=== PATIENT | female | born 1965 | race Caucasian/White ===

== ENCOUNTER 2017-06-04 17:36 | Emergency (ER) | payer MEDICAID ==
[~2017-06-04] VITALS: Ht 152.4 cm; Wt 68.0 kg
[2017-06-04 17:36] VITALS: BP_SYST 114
[~2017-06-04 17:36] MED LIST: ALBU17AE26; CYCL-10; HYDR1TAB10; LIDP; SUMA100T; TOP25; TRAM100T11; TRAM50TA2 PO; ZIPR80CA26
== END 2017-06-04 19:42 | disposition left against medical advice (07) ==
LOC: SED 17:36
DX: M25.512 Pain in left shoulder (principal); J45.909 Unspecified asthma, uncomplicated
CPT/HCPCS: 99281

== ENCOUNTER 2017-06-15 18:10 | Emergency (ER) | payer MEDICAID ==
[~2017-06-15] VITALS: Ht 152.4 cm; Wt 72.6 kg
[2017-06-15 18:19] VITALS: BP_SYST 117
--- NOTE | 2017-06-15 20:00 | NUR ---
Patient left without being seen. No further treatment done. ER MD aware
== END 2017-06-15 20:00 | disposition left against medical advice (07) ==
LOC: SED 18:10
DX: M25.512 Pain in left shoulder (principal); Z53.21 Procedure and treatment not carried out due to patient leaving prior to being seen by health care provider; Z88.8 Allergy status to other drugs, medicaments and biological substances; Z79.899 Other long term (current) drug therapy
CPT/HCPCS: 73030; 99281

== ENCOUNTER 2017-06-22 15:17 | Emergency (ER) | payer MEDICAID ==
[~2017-06-22] VITALS: Ht 152.4 cm; Wt 72.6 kg
[2017-06-22 15:20] VITALS: BP_SYST 123
--- NOTE | 2017-06-22 15:23 | NUR ---
Pt placed to ER bed 03. Report given to JUDD Leonard.
--- NOTE | 2017-06-22 15:32 | NUR ---
PATIENT TO ER BED 3.PER PATIENT SHE HAS BEEN FEELING PAIN TO LEFT SHOULDER BUT IT GOT WORSE FOR THE LAST 3 DAYS.COMPLAINING OF LEFT SHOULDER PAIN 10/10 RADIATING TO LEFT ARM.WITH LIMITED LEFT ARM MOVEMENT.NONPITTING EDEMA TO LEFT WRIST;NO REDNESS;PAIN TO PALPATION.NO OTHER COMPLAIN/INJURY NOTED PER PATIENT OR NOTED
--- NOTE | 2017-06-22 15:33 | NUR ---
ER at bedside examining patient.
[2017-06-22] MEDS ORDERED: MORPHINE SULFATE 10 MG/ML VIAL IM ONE (15:45)
[2017-06-22] MEDS ORDERED: DIPHENHYDRAMINE INJ 50 MG/ML VIAL IM ONE (15:45)
--- NOTE | 2017-06-22 16:16 | NUR ---
Patient given written and verbal discharge instructions and verbalizes understanding. ER MD discussed with patient the results and treatment provided. Patient in stable condition. ID arm band removed. Rx of Flexeril,Mobic and Ultram given. Patient educated on pain management and to follow up with PMD. Pain Scale 0/10 . Opportunity for questions provided and answered.
[2017-06-22 16:20] VITALS: BP_SYST 122
== END 2017-06-22 16:20 | disposition home or self-care (01) ==
LOC: SED 15:17
DX: M25.512 Pain in left shoulder (principal); J45.909 Unspecified asthma, uncomplicated; G40.909 Epilepsy, unspecified, not intractable, without status epilepticus; F31.9 Bipolar disorder, unspecified; Z88.2 Allergy status to sulfonamides; Z88.1 Allergy status to other antibiotic agents; Z79.899 Other long term (current) drug therapy
CPT/HCPCS: 73030; 96372; 99284; J1200; J2270

== ENCOUNTER 2019-01-08 12:11 | Emergency (ER) | payer MEDICAID ==
[~2019-01-08] VITALS: Ht 152.4 cm; Wt 61.2 kg
[~2019-01-08 12:11] MED LIST changes: +ZIPR80CA23; -ZIPR80CA26
[2019-01-08 12:18] VITALS: BP_SYST 111
[2019-01-08] MEDS ORDERED: KETOROLAC TROMETHAMINE 60 MG/2 ML VIAL IM ONE (13:00)
[2019-01-08] MEDS ORDERED: CEPHALEXIN 500 MG CAPSULE PO ONE (14:15)
[2019-01-08 15:04] LABS: BILIRUBIN,URINE NEGATIVE (NEGATIVE); BLOOD, URINE 1+ (NEGATIVE); COLOR,URINE YELLOW (YELLOW); GLUCOSE,URINE NEGATIVE (NEGATIVE); KETONES,URINE NEGATIVE (NEGATIVE); NITRITE, URINE POSITIVE (NEGATIVE); PH,URINE 5.5 (5.0-8.0); PROTEIN URINE TRACE (NEGATIVE); UROBILINOGEN,URINE 0.2 (0.2-1.0)
[2019-01-08 15:17] VITALS: BP_SYST 129
[2019-01-08 15:20] LABS: CLARITY/URINE SLIGHTLY CLOUDY (CLEAR); LEUKOCYTE ESTERASE ,URINE TRACE (NEGATIVE)
[2019-01-08 15:21] LABS: BACTERIA,URINE MODERATE /HPF (None Seen); RBC,URINE NONE SEEN /HPF (0-3)
[2019-01-08 15:22] LABS: CALCIUM OXALATE CRYSTALS,UR 0-10 /HPF (None Seen); MUCUS,URINE None Seen /LPF (None Seen); URINE AMORPHOUS URATE 3+ /HPF (None Seen)
== END 2019-01-08 15:17 | disposition home or self-care (01) ==
LOC: SED 12:11
DX: G44.209 Tension-type headache, unspecified, not intractable (principal); N39.0 Urinary tract infection, site not specified; M79.7 Fibromyalgia; J45.909 Unspecified asthma, uncomplicated; F32.9 Major depressive disorder, single episode, unspecified; Z90.49 Acquired absence of other specified parts of digestive tract; Z90.710 Acquired absence of both cervix and uterus; Z88.2 Allergy status to sulfonamides; Z88.8 Allergy status to other drugs, medicaments and biological substances; Z79.899 Other long term (current) drug therapy
CPT/HCPCS: 81000; 87086; 96372; 99283; J1885

== ENCOUNTER 2019-05-09 19:16 | Emergency (ER) | payer MEDICAID ==
[~2019-05-09] VITALS: Ht 152.4 cm; Wt 63.5 kg
[2019-05-09 19:20] VITALS: BP_SYST 151
[2019-05-09] MEDS ORDERED: KETOROLAC TROMETHAMINE 60 MG/2 ML VIAL IM ONE (22:00)
[2019-05-09] MEDS ORDERED: ceFAZolin SODIUM 1 GM VIAL IM ONE (22:00)
[2019-05-09 22:40] VITALS: BP_SYST 134
== END 2019-05-09 22:40 | disposition home or self-care (01) ==
LOC: SED 19:16
DX: L03.116 Cellulitis of left lower limb (principal); M79.7 Fibromyalgia; F31.9 Bipolar disorder, unspecified; Z90.49 Acquired absence of other specified parts of digestive tract; Z88.2 Allergy status to sulfonamides; Z88.8 Allergy status to other drugs, medicaments and biological substances; Z79.899 Other long term (current) drug therapy
CPT/HCPCS: 96372; 99283; J0690; J1885

== ENCOUNTER 2019-10-03 14:27 | Emergency (ER) | payer MEDICAID ==
[~2019-10-03] VITALS: Ht 152.4 cm; Wt 65.8 kg
[2019-10-03 14:58] VITALS: BP_SYST 152
--- NOTE | 2019-10-03 15:05 | NUR ---
Placed in room . Placed on substitute nurse, blood pressure machine and pulse oximeter. Side rails up.seizure precautions.
[2019-10-03] MEDS ORDERED: NACL 0.9% 1,000 ML IV ONE (15:10)
--- NOTE | 2019-10-03 15:10 | NUR ---
Patient presented to ER C/O seizure today. Patient A&Ox4, afebrile, ambulatory to ER, BIB , skin pink and warm, pain 7/10, nausea, vomiting x1, denies diarrhea. Patient states she had seizure today, ran out of RX 2weeks ago, has head ache pain & weakness.
--- NOTE | 2019-10-03 15:11 | NUR ---
ER at bedside examining patient.
[2019-10-03 15:30] LABS: BASOPHILS # (AUTO) 0.1 K/uL (0.0-0.2); BASOPHILS % (AUTO) 0.6 % (0.0-2.0); EOSINOPHILS # (AUTO) 0.1 K/uL (0.0-0.4); EOSINOPHILS % (AUTO) 0.8 % (0.0-4.0); HEMATOCRIT 41.3 % (36-48); HEMOGLOBIN 13.9 g/dL (12.0-16.0); LYMPHOCYTES # (AUTO) 1.6 K/uL (1.0-5.5); LYMPHOCYTES % (AUTO) 16.6 % (20.5-51.5); MEAN CORPUSCULAR HEMOGLOBIN 31 pg (27-31); MEAN CORPUSCULAR HGB CONC 34 % (32-36); MEAN CORPUSCULAR VOLUME 91 fL (79.0-98.0); MONOCYTES # (AUTO) 0.7 K/uL (0.0-1.0); MONOCYTES % (AUTO) 6.9 % (1.7-9.3); NEUTROPHILS # (AUTO) 7.4 K/uL (1.8-7.7); NEUTROPHILS % (AUTO) 75.1 % (40.0-70.0); PLATELET COUNT (AUTO) 403 K/uL (130-430); RED BLOOD CELL COUNT(AUTO) 4.55 MIL/uL (4.2-6.2); RED CELL DISTRIBUTION WIDTH 14.2 % (9.0-15.0); WHITE BLOOD COUNT (AUTO) 9.8 K/uL (4.8-10.8)
[2019-10-03] MEDS ORDERED: DIPHENHYDRAMINE INJ 50 MG/ML VIAL IVP ONE (15:30)
[2019-10-03] MEDS ORDERED: ONDANSETRON HCL 4 MG/2 ML VIAL IVP ONE (15:30)
[2019-10-03 15:41] LABS: BILIRUBIN,URINE NEGATIVE (NEGATIVE); BLOOD, URINE 1+ (NEGATIVE); CLARITY/URINE CLOUDY (CLEAR); COLOR,URINE YELLOW (YELLOW); GLUCOSE,URINE NEGATIVE (NEGATIVE); KETONES,URINE NEGATIVE (NEGATIVE); LEUKOCYTE ESTERASE ,URINE TRACE (NEGATIVE); NITRITE, URINE POSITIVE (NEGATIVE); PH,URINE 6.5 (5.0-8.0); PROTEIN URINE NEGATIVE (NEGATIVE); UROBILINOGEN,URINE 0.2 (0.2-1.0)
[2019-10-03 15:42] LABS: CALCIUM 8.9 mg/dL (8.4-11.0); CREATININE 0.75 mg/dL (0.55-1.30); POTASSIUM 3.8 mmol/L (3.5-5.1)
[2019-10-03 15:48] LABS: ALBUMIN 3.9 g/dL (3.4-4.8); TOTAL BILIRUBIN 0.3 mg/dL (0.0-1.0)
[2019-10-03 15:51] LABS: ACETAMINOPHEN < 1 ug/mL (1-30); ALCOHOL, BLOOD < 3 mg/dL (<10)
[2019-10-03 15:55] LABS: INR 0.9 (0.8-1.2); PROTHROMBIN TIME 9.3 SECS (9.5-12.5)
--- NOTE | 2019-10-03 15:55 | NUR ---
Patient in in Radiology for CT.
[2019-10-03 16:02] LABS: BARBITURATE, URINE NEGATIVE (NEG <=200); BENZODIAZEPINE, URINE NEGATIVE (NEG <=150); CANNABINOID, URINE POSITIVE (NEG <=50); COCAINE, URINE NEGATIVE (NEG <=150); METHAMPHETAMINES SCREEN,URINE NEGATIVE (NEG <=500); OPIATE, URINE NEGATIVE (NEG <=100); PHENCYCLIDINE SCREEN,URINE NEGATIVE (NEG <=25); UR TRICYCLIC ANTIDEPRESSANTS NEGATIVE (NEG <=300); URINE AMPHETAMINE POSITIVE (NEG <=500); URINE METHADONE NEGATIVE (NEG <=200); URINE OXYCODONE SCREEN NEGATIVE (NEG <=100); URINE PROPOXYPHENE SCREEN NEGATIVE (NEG <=300)
[2019-10-03 16:58] LABS: BACTERIA,URINE MANY /HPF (None Seen); MUCUS,URINE None Seen /LPF (None Seen); RBC,URINE 0-3 /HPF (0-3)
[2019-10-03] MEDS ORDERED: cefTRIAXone 1 GM IVPB PREMIX 50 ML IV ONE (17:00)
--- NOTE | 2019-10-03 17:10 | NUR ---
Patient hermila in [facility], at bedside.
[2019-10-03] MEDS ORDERED: KETOROLAC TROMETHAMINE 30 MG VIAL IVP ONE (18:30)
[2019-10-03 19:11] VITALS: BP_SYST 118
--- NOTE | 2019-10-03 19:12 | NUR ---
Patient given written and verbal discharge instructions and verbalizes understanding. ER MD discussed with patient the results and treatment provided. Patient in stable condition. ID arm band removed. IV catheter removed intact and dressing applied, no active bleeding. Rx of TOPAMAX, NAPROSYN, ZOFRAN given. Patient educated on pain management and to follow up with PMD. Pain Scale 20/10 tolerable for PT. Opportunity for questions provided and answered. Medication side effect fact sheet provided.
== END 2019-10-03 19:11 | disposition home or self-care (01) ==
LOC: SED 14:27
DX: G40.909 Epilepsy, unspecified, not intractable, without status epilepticus (principal); G44.209 Tension-type headache, unspecified, not intractable; N39.0 Urinary tract infection, site not specified; F15.10 Other stimulant abuse, uncomplicated; F17.210 Nicotine dependence, cigarettes, uncomplicated; Z88.8 Allergy status to other drugs, medicaments and biological substances; Z88.1 Allergy status to other antibiotic agents; Z88.2 Allergy status to sulfonamides; Z79.899 Other long term (current) drug therapy
CPT/HCPCS: 36415; 70450; 71045; 80053; 80307; 81000; 82150; 82550; 83605; 83690; 84146; 84484; 85025; 85610; 85730; 87040; 87086; 87186; 93005; 96365; 96375; 99284; G0480; G0481; G0482; J0696; J1200; J1885; J2405; J7030

== ENCOUNTER 2021-03-30 17:24 | Emergency (ER) | payer MEDICAID ==
[~2021-03-30] VITALS: Ht 132.1 cm; Wt 78.0 kg
[2021-03-30 17:24] VITALS: BP_SYST 135
--- NOTE | 2021-03-30 17:24 | NUR ---
Placed in room 08 . Placed on electronic device monitor, blood pressure machine and pulse oximeter. To gown for exam. Side rails up.
--- NOTE | 2021-03-30 17:30 | NUR ---
Pt walked in to ER with c/o chest pain radiating to left arm x1 hour, 05/08. EKG done at bedside, v/s stable, no acute distress noted.
--- NOTE | 2021-03-30 17:37 | NUR ---
ER Dr. Alberto at bedside examining patient.
[2021-03-30] MEDS ORDERED: ASPIRIN 81 MG TAB.CHEW PO ONE (18:00)
--- NOTE | 2021-03-30 18:00 | NUR ---
Radiology at bedside for CXR.
--- NOTE | 2021-03-30 18:03 | NUR ---
Lab at bedside for blood draw.
[2021-03-30 18:28] LABS: BASOPHILS # (AUTO) 0.1 K/uL (0.0-0.2); BASOPHILS % (AUTO) 0.8 % (0.0-2.0); EOSINOPHILS # (AUTO) 0.1 K/uL (0.0-0.4); EOSINOPHILS % (AUTO) 1.5 % (0.0-4.0); LYMPHOCYTES # (AUTO) 2.5 K/uL (1.0-5.5); LYMPHOCYTES % (AUTO) 36.4 % (20.5-51.5); MEAN CORPUSCULAR HEMOGLOBIN 31 pg (27-31); MEAN CORPUSCULAR HGB CONC 34 % (32-36); MEAN CORPUSCULAR VOLUME 91 fL (79.0-98.0); MONOCYTES # (AUTO) 0.7 K/uL (0.0-1.0); MONOCYTES % (AUTO) 10.2 % (1.7-9.3); NEUTROPHILS # (AUTO) 3.6 K/uL (1.8-7.7); NEUTROPHILS % (AUTO) 51.1 % (40.0-70.0); PLATELET COUNT (AUTO) 325 K/uL (130-430)
[2021-03-30 18:35] LABS: CALCIUM 9.1 mg/dL (8.4-11.0); CREATININE 1.04 mg/dL (0.55-1.30); POTASSIUM 3.7 mmol/L (3.5-5.1)
--- NOTE | 2021-03-30 18:40 | NUR ---
# 22 gauge angiocath placed to LFA. Use of asceptic technique. Opsite placed over site. Blood return noted. Flushed with 10 cc of normal saline. No evidence of infiltration noted. Patient tolerated well.
[2021-03-30 18:41] LABS: ALBUMIN 3.6 g/dL (3.4-4.8); TOTAL BILIRUBIN 0.3 mg/dL (0.0-1.0)
[2021-03-30] MEDS ORDERED: NACL 0.9% 1,000 ML IV ONE (19:00)
[2021-03-30] MEDS ORDERED: LORazepam 2 MG/ML VIAL IVP ONE (19:00)
--- NOTE | 2021-03-30 19:00 | NUR ---
ASSUMED CARE OF PT. PT IS RESTING QUIETLY IN NO DISTRESS. PT STILL UNABLE TO PROVIDE URINE SAMPLE CURRENTLY.
--- NOTE | 2021-03-30 20:35 | NUR ---
LAB AT BEDSIDE TO DRAW SECOND TROPONIN.
[2021-03-30] MEDS ORDERED: FAMO40TA71 PO (21:44)
--- NOTE | 2021-03-30 21:45 | NUR ---
Pt refusing to provide urine at this time, pt refusing urinary catheter
[2021-03-30] MEDS ORDERED: OLAN2.5T3 PO (21:48)
[2021-03-30] MEDS ORDERED: HALOPERIDOL 1 MG TABLET (HALDOL) PO ONE (22:00)
--- NOTE | 2021-03-30 22:30 | NUR ---
PT RESTING QUIETLY IN NO DISTRESS AWAITING DISPOSITION.
--- NOTE | 2021-03-30 23:10 | NUR ---
PT AMBULATED TO RESTROOM. PT REFUSED TO PROVIDE URINE SAMPLE.
--- NOTE | 2021-03-30 23:30 | NUR ---
PT CALLED BROTHER FOR RIDE HOME. FAMILY MEMBER IN ROUTE.
[2021-03-30 23:37] VITALS: BP_SYST 129
--- NOTE | 2021-03-30 23:37 | NUR ---
Patient given written and verbal discharge instructions and verbalizes understanding. DR. ERICA BOLANOS MD discussed with patient the results and treatment provided. Patient in stable condition. ID arm band removed. IV catheter removed intact and dressing applied, no active bleeding. Rx SENT PER MD. Patient educated on pain management and to follow up with PMD. Pain Scale 0/10. Opportunity for questions provided and answered. Medication side effect fact sheet provided.
== END 2021-03-30 23:37 | disposition home or self-care (01) ==
LOC: SED 17:24
DX: R07.89 Other chest pain (principal); F22 Delusional disorders; Z88.8 Allergy status to other drugs, medicaments and biological substances; Z88.2 Allergy status to sulfonamides; Z79.899 Other long term (current) drug therapy
CPT/HCPCS: 36415; 71045; 80053; 84484; 85025; 85379; 93005; 96361; 96374; 99285; J2060; J7030

== ENCOUNTER 2021-10-24 19:24 | Emergency (ER) | payer MEDICAID ==
[~2021-10-24] VITALS: Ht 152.4 cm; Wt 65.8 kg
[2021-10-24 19:24] VITALS: BP_SYST 128
[~2021-10-24 19:24] MED LIST changes: -CYCL-10; +CYCL10TA24; +FAMO40TA71 PO; +OLAN2.5T3 PO
--- NOTE | 2021-10-24 19:24 | NUR ---
Placed in room 07 . Placed on desk monitor, blood pressure machine and pulse oximeter. To gown for exam. Side rails up. Report given to JUDD CARR
--- NOTE | 2021-10-24 20:00 | NUR ---
withdraw the blood culture from patient and sent them to the lab for pending. Pt has Right AC line
[2021-10-24 20:31] LABS: BASOPHILS % (AUTO) 0.7 % (0.0-2.0); EOSINOPHILS # (AUTO) 0.1 K/uL (0.0-0.4); EOSINOPHILS % (AUTO) 1.6 % (0.0-4.0); HEMATOCRIT 40.8 % (36-48); HEMOGLOBIN 13.6 g/dL (12.0-16.0); LYMPHOCYTES # (AUTO) 2.8 K/uL (1.0-5.5); LYMPHOCYTES % (AUTO) 39.2 % (20.5-51.5); MEAN CORPUSCULAR HEMOGLOBIN 30 pg (27-31); MEAN CORPUSCULAR HGB CONC 33 % (32-36); MEAN CORPUSCULAR VOLUME 89 fL (79.0-98.0); MONOCYTES # (AUTO) 0.7 K/uL (0.0-1.0); MONOCYTES % (AUTO) 9.3 % (1.7-9.3); NEUTROPHILS # (AUTO) 3.5 K/uL (1.8-7.7); NEUTROPHILS % (AUTO) 49.2 % (40.0-70.0); PLATELET COUNT (AUTO) 350 K/uL (130-430); RED BLOOD CELL COUNT(AUTO) 4.59 MIL/uL (4.2-6.2); RED CELL DISTRIBUTION WIDTH 13.9 % (9.0-15.0)
[2021-10-24 21:11] LABS: CALCIUM 8.9 mg/dL (8.4-11.0); CREATININE 0.92 mg/dL (0.55-1.30)
[2021-10-24 21:22] LABS: ALBUMIN 3.5 g/dL (3.4-4.8); TOTAL BILIRUBIN 0.2 mg/dL (0.0-1.0)
[2021-10-24 22:43] LABS: INR 0.9 (0.8-1.2); PROTHROMBIN TIME 9.3 SECS (9.5-12.5)
--- NOTE | 2021-10-25 00:45 | NUR ---
ER at bedside examining patient.
--- NOTE | 2021-10-25 02:51 | NUR ---
Patient given written and verbal discharge instructions and verbalizes understanding. DAYAMI SCHWARTZ MD discussed with patient the results and treatment provided. Patient in stable condition. Patient educated on pain management and to follow up with PMD. Pain Scale 0/10 Opportunity for questions provided and answered. Medication side effect fact sheet provided.
[2021-10-25 02:54] VITALS: BP_SYST 129
== END 2021-10-25 02:54 | disposition home or self-care (01) ==
LOC: SED 19:24
DX: R07.89 Other chest pain (principal); Z88.8 Allergy status to other drugs, medicaments and biological substances; Z79.899 Other long term (current) drug therapy
CPT/HCPCS: 36415; 71045; 80053; 84484; 85025; 85379; 85610-TC; 85730-TC; 93005; 99285